=== PATIENT | male | born 1940 | race Caucasian/White ===

== ENCOUNTER 2016-09-21 09:50 | Emergency (ER) | payer OTHER, MEDICARE ==
[~2016-09-21] VITALS: Ht 182.9 cm; Wt 74.8 kg
[~2016-09-21 09:50] MED LIST: ALLOPURINOL300 MG PO; AMOXIL500 MG PO; DESYREL50 MG PO; FOLIC ACID 1 MG PO; METHOTREXATE 22.5 MG PO; METHOTREXATE2.5 M1 PO; METOPROLOL TART50 MG PO; NORCO 325 MG-7.1 TAB PO; PROTONIX 40MG T40 MG PO; RESTASIS 0.4 M0.4 ML OPH; SIMVASTATIN20 MG PO; TOBREX OPH OPH; TRAZODONE50 MG PO; WARFARIN SODIUM5 MG PO; ZOLPIDEM TARTRA10 MG PO
--- NOTE | 2016-09-21 10:38 | ED NOSE COMPLAINT ---
History of Present Illness General Chief Complaint: Epistaxis/Nasal Foreign Body Stated Complaint: NOSE BLEED Source: patient, old records Exam Limitations: no limitations Vital Signs & Intake/Output Vital Signs & Intake/Output Vital Signs Date Time Temp Pulse Resp B/P Pulse O2 O2 Flow FiO2 Ox Delivery Rate 09/21 1206 98.6 76 18 156/84 98 Room Air 09/21 1002 97.0 100 16 170/83 98 Room Air ED Intake and Output 09/22 0000 09/21 1200 Intake Total Output Total Balance Patient 165 lb Weight Allergies Coded Allergies: NO KNOWN ALLERGIES (09/23/13) Reconcile Medications Allopurinol 300 MG TAB 1 TAB PO DAILY GOUT (Reported) Cyclosporine (Restasis 0.4 Ml) 0.4 ML EMU 1 GTT OPH BID EYE (Reported) Folic Acid 1 MG TABLET 1 MG PO DAILY FOLIC ACID SUPPLEMENT (Reported) Methotrexate 2.5 MG TAB 5 TAB PO QW UNKNOWN (Reported) Metoprolol Tartrate 50 MG TABLET 1.5 TAB PO BID HEART/BP (Reported) Pantoprazole Sodium (Protonix) 40 MG TAB 40 MG PO DAILY GERD (Reported) Simvastatin (Zocor) 20 MG TAB 1 TAB PO QPM CHOLESTEROL (Reported) Trazodone Hydrochloride (Desyrel) 50 MG TAB 0.5 TAB PO AT BEDTIME sleep Warfarin Sodium 5 MG TABLET 0.5-1 TAB PO AD BLOOD THINNER (Reported) Zolpidem Tartrate 10 MG TAB 0.5 TAB PO QPM SLEEP (Reported) Triage Note: PT STATES HE BEGAN HAVING A NOSE BLEED ABOUT 0900 AND HAS NOT BEEN ABLE TO GET IT TO STOP. PT STATES THIS HAPPEND ABOUT 1 YEAR AGO TO HIM. PT IS TAKING COUMADIN. Triage Nurses Notes Reviewed? yes Onset: Abrupt Duration: hour(s): (2), constant Timing: recent history Injury Environment: home Severity: moderate Severity Numbers: 7 No Modifying Factors: none Associated Symptoms: denies HPI: 76-year-old male with history of aortic valve replacement on Coumadin presents emergency room complaining of a right-sided epistaxis for the past 2 hours that came on suddenly that he is been unable to stop by applying pressure. The patient states he's had history of similar nosebleeds in the past that required packing. There's been no recent fall trauma or other injury. He denies any dizziness lightheadedness. The patient states he had his INR checked last week and it was 3.9. He is otherwise without any other complaints currently. (JAMES JOSHI) Past History Travel History Traveled to [place] past 21 day No Medical History Any Pertinent Medical History? 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 No (JAMES JOSHI) Review of Systems Review of Systems Constitutional: Reports: see HPI. All Other Systems: Reviewed and Negative Comments Review of systems: See HPI, All other systems negative. Constitutional, no chills no fever, no malaise HEENT: no sore throat no congestion Cardiovascular: No chest pain , no palpitation Skin, no jaundice no rashes, no change in skin Respiratory: No dyspnea no cough GI: No nausea no vomiting, no diarrhea, no bloating/constipation : No dysuria Muscle skeletal: No joint pain, no joint swelling, no back pain, no neck pain, Neurologic: No numbness , no headache Psych: No stress Heme/endocrine: No bruising bleeding Immunology: No lymphadenopathy, (JAMES JOSHI) Physical Exam Physical Exam General Appearance: well developed/nourished, no apparent distress, alert, awake Nose: active bleeding (R NOSTRIL) Comments: Well-developed well-nourished patient in no apparent distress. Head/Face: Atraumatic, no maxillary/frontal sinus tenderness, no facial swelling Eyes: PERRL, EOMI, no conjunctival injection Ear:External auditory canals clear, Nose: Right-sided active nostril bleeding, left nostril is clear no septal hematoma Throat: Moist mucous membranes.Pharynx normal. No pharyngeal erythema/exudate seen. No stridor/drooling or assymetry. No swelling or edema. Neck: Supple, no lymphadenopathy, FROM Back: FROM, Nontender Cardiovascular: Regular rate and rhythms no murmur Respiratory: No respiratory distress. Patient speaking in full complete sentences. Breath sounds clear to auscultation bilaterally: NO W/R/R Extremities: full range of motion Neuro: Alert and oriented x3 Skin: Warm & dry;No appreciable rash on exposed skin Psych: Mood affect normal, normal memory normal judgment. (JAMES JOSHI) Progress Differential Diagnoses I considered the following diagnoses in my evaluation of the patient: Epistaxis, elevated inr Plan of Care: Orders Procedure Date/time Status PARTIAL THROMBOPLASTIN TIME 09/21 1041 Complete PROTHROMBIN TIME 09/21 1041 Complete Laboratory Tests 09/21/16 1115: PT 68.8 *H, INR 6.68 *H, APTT 54 H Labs were sent, Rhino Rocket 7.5CM anterior posterior was placed by myself patient tolerated procedure well we'll continue to monitor case was discussed with Dr. Lee. On repeat evaluation patient is resting comfortably there is been no further residual bleeding the patient is requesting the Rhino Rocket BE removed at this time. The Rhino Rocket was removed by myself and the patient was monitored for a period of time without any residual bleeding. Case was discussed with Dr. Lee who evaluated the patient , i discussed with him at length his elevated INR 6.6 . The patient will hold his Coumadin this evening and tomorrow. Per Dr. lee patient will be treated with vitamin K 5 mg by mouth. The information was provided for close follow-up with his primary care physician on Friday, as well as ENT. I advised return anytime sooner if he redevelops bleeding or has any other concerns he feels comfortable this plan cleared for discharge (JAMES JOSHI) Initial ED EKG: none (JAMES JOSHI) Departure Departure Time of Disposition: 1200 Disposition: HOME OR SELF CARE Condition: Stable Clinical Impression Primary Impression: Epistaxis Secondary Impressions: Elevated INR Referrals: STEPAN CHACON,JEAN Mark (PCP/Family) GINA GUTIERREZ MD Additional Instructions: follow up with your pmd as well as ear nose and throat physician dr gutierrez on [address]. hold your coumadin this evening and tomorrow. begin again on friday. return to the ER at anytime sooner with any concerns. Departure Forms: Customer Survey General Discharge Information (WENCESLAO BENÍTEZ,) PA/JACKET PREPARER Co-Sign Statement Statement: ED Attending supervision documentation- [x] I saw and evaluated the patient. I have also reviewed all the pertinent lab results and diagnostic results. I agree with the findings and the plan of care as documented in the PA's/JACKET PREPARER's documentation. [] I have reviewed the ED Record and agree with the PA's/JACKET PREPARER's documentation. [] Additions or exceptions (if any) to the PAs/JACKET PREPARER's note and plan are summarized below: [] (JHOAN CHACON,YAJAIRA Lakhani)
[2016-09-21 11:36] LABS: PTT 54 SEC (25-37)
[2016-09-21 11:46] LABS: PT 68.8 SEC (9.4-12.5)
[2016-09-21 12:06] VITALS: BP 156/84
== END 2016-09-21 12:06 ==
LOC: ERH 09:50
PROVIDERS: Physician Assistant Medical
DX: R04.0 Epistaxis (principal); R79.1 Abnormal coagulation profile

== ENCOUNTER 2017-08-02 22:00 | Emergency (ER) | payer OTHER, MEDICARE ==
[~2017-08-02 22:00] MED LIST changes: +ACYCLOVIR200 M1 PO; +ALLOPURINOL300 M1 PO; +ATORVASTATIN CA40 M1 PO; +BICALUTAMIDE50 M1 PO; +CLOPIDOGREL75 M1 PO; +FOLIC ACID1 M1 PO; +HYDROCODON-ACE1 EAC3 PO; +KETOCONAZOLE15 GM TOP; +LUPRON DEPOT22.5 M1 INJ; +METHOTREXATE2.5 M2 PO; +PANTOPRAZOLE SO40 M1 PO; +TRAZODONE HCL50 M1 PO; +WARFARIN SODIUM5 M1 PO; +ZOLPIDEM TARTRA10 M1 PO
--- NOTE | 2017-08-02 23:03 | ED NOSE COMPLAINT ---
History of Present Illness General Chief Complaint: General Adult Stated Complaint: BLOODY NOSE Source: patient Exam Limitations: no limitations Vital Signs & Intake/Output Vital Signs & Intake/Output Vital Signs Date Time Temp Pulse Resp B/P B/P Pulse O2 O2 Flow FiO2 Mean Ox Delivery Rate 08/03 0009 67 20 149/73 97 Room Air 08/027 Room Air 08/02 2206 97.5 94 22 152/82 97 Allergies Coded Allergies: NO KNOWN ALLERGIES (09/23/13) Reconcile Medications Acyclovir 200 MG CAPSULE 1 CAP PO BID ANTIVIRAL (Reported) Allopurinol 300 MG TABLET 1 TAB PO DAILY GOUT (Reported) Amoxicillin 875 MG TABLET 1 TAB PO BID NASAL PACKING PPX Atorvastatin Calcium 40 MG TABLET 1 TAB PO DAILY CHOLESTEROL (Reported) Bicalutamide 50 MG TABLET 1 TAB PO DAILY PROSTATE CANCER (Reported) Clopidogrel Bisulfate (Clopidogrel) 75 MG TABLET 1 TAB PO DAILY BLOOD THINNER (Reported) Folic Acid 1 MG TABLET 1 TAB PO DAILY SUPPLEMENT (Reported) Hydrocodone/Acetaminophen (Hydrocodon-Acetaminoph 7.5-325) 7.5 MG-325 MG TABLET 0.5 TAB PO DAILY PAIN (Reported) Ketoconazole 2 % CREAM..G. 1 RAFITA TOP BID FACE (Reported) apply to affected area(s) Leuprolide Acetate (Lupron Depot) (Unknown Strength) SYRINGEKIT (Unknown Dose) INJ Q3M PROSTATE CANCER (Reported) Methotrexate 2.5 MG TABLET 2 TAB PO DAILY PSORIASIS (Reported) Pantoprazole Sodium 40 MG TABLET.DR 1 TAB PO DAILY GI (Reported) Trazodone HCl 50 MG TABLET 1-2 TAB PO QPM SLEEP (Reported) Warfarin Sodium 5 MG TABLET 0.5-1 TAB PO AD BLOOD THINNER (Reported) Zolpidem Tartrate 10 MG TABLET 1 TAB PO QPM SLEEP (Reported) Triage Note: PER PT HAD NOSE CAUTERIZED THIS AM NOW BLEEDING AGAIN X 45 MINUTES. ON COUMADIN. NO DIFF SWALLOWING Triage Nurses Notes Reviewed? yes Onset: Abrupt Duration: day(s): (1), changing over time, continues in ED, getting worse Timing: remote history Injury Environment: home Severity: moderate, severe Severity Numbers: 6 No Modifying Factors: none HPI: 77-year-old male past medical history of hypertension, coronary artery disease, valve replacement on Coumadin presents for evaluation of a nosebleed. Patient states that he first noticedbleeding earlier today. He went to an urgent care and had his nose cauterized. He was doing well until several hours later when he started bleeding again. He continued to HOLD pressure however this did not work. He states that he has had multiple nosebleeds over the past several years has been on Coumadin. He denies any chest pain shortness of breath dizziness lightheadedness difficulty swallowing. The blood is only coming from the left naris nothing from the right. He states that he checks his INR every couple weeks and usually it is normal. He also takes Plavix for coronary artery disease. (Joo Edwards) Past History Travel History Traveled to [place] past 21 day No Medical History Any Pertinent Medical History? 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 No (Joo Edwards) Review of Systems Review of Systems Constitutional: Reports: no symptoms. EENTM: Reports: epistaxis. Respiratory: Reports: no symptoms. Cardiovascular: Reports: no symptoms. GI: Reports: no symptoms. Genitourinary: Reports: no symptoms. Musculoskeletal: Reports: no symptoms. Skin: Reports: no symptoms. Neurological/Psychological: Reports: no symptoms. Hematologic/Endocrine: Reports: no symptoms. Immunologic/Allergic: Reports: no symptoms. All Other Systems: Reviewed and Negative (Joo Edwards) Physical Exam Physical Exam General Appearance: well developed/nourished, no apparent distress, alert, awake Head: atraumatic, normal appearance Eyes: Bilateral: normal appearance, PERRL, EOMI. Nose: active bleeding, dried blood, THERE IS ACTIVE BLEEDING FROM THE LEFT NARIS. tHERE IS CAUTERIZED TISSUE IN THE NASAL PASSAGES ON THE LEFT NARIS. a BLEEDING ARTERY CANNOT BE LOCALIZED Mouth/Throat: normal mouth inspection, BLOOD IN THE POSTERIOR PHARYNX Neck: normal inspection, supple, full range of motion Cardiovascular/Respiratory: normal breath sounds, normal peripheral pulses, regular rate/rhythm, no respiratory distress Back: normal inspection, normal range of motion, no vertebral tenderness Neurologic/Psych: no motor/sensory deficits, awake, alert, oriented x 3 (Tristen BENÍTEZ,Joo) Progress Differential Diagnoses I considered the following diagnoses in my evaluation of the patient: [Anterior nosebleed, posterior nosebleed, nasal fracture, coagulopathy, hypovolemia] Plan of Care: Orders Procedure Date/time Status PARTIAL THROMBOPLASTIN TIME 08/02 2228 Complete PROTHROMBIN TIME 08/02 2228 Complete COMPREHENSIVE METABOLIC PANEL 08/02 2228 Complete CBC WITHOUT DIFFERENTIAL 08/02 2228 Complete Laboratory Tests 08/02/17 2305: Anion Gap 12, Estimated GFR > 60, BUN/Creatinine Ratio 31.1 H, Glucose 115 H, Calcium 9.0, Total Bilirubin 0.5, AST 65 H, ALT 30, Alkaline Phosphatase 260 H , Total Protein 6.0 L, Albumin 3.6, Globulin 2.4, Albumin/Globulin Ratio 1.5, PT 71.8 *H, INR 6.97 *H, APTT 54 H, CBC w Diff NO MAN DIFF REQ, RBC 3.92 L, MCV 89.3, MCH 29.0, MCHC 32.5 L, RDW 18.4 H, MPV 6.8 L, Gran % 79.9 H, Lymphocytes % 10.8 L, Monocytes % 8.1, Eosinophils % 0.7, Basophils % 0.5, Absolute Granulocytes 7.3 H, Absolute Lymphocytes 1.0 L, Absolute Monocytes 0.7 H, Absolute Eosinophils 0.1, Absolute Basophils 0 Patient seen and evaluated. He has active bleeding from the left naris. There is evidence of previous cauterization. No bleeding vessel is visualized. Patient also has blood noted in the posterior oropharynx. A thrombin coated Rhino Rocket was placed. Patient tolerated well. He was observed for an hour and a half for evidence of rebleeding. He was ambulated in the emergency department had a steady gait. No dizziness or lightheadedness. Patient's INR is elevated to 7. He denies any history of hematuria melena bleeding from his rectum or any other evidence of bleeding other than the epistaxis. Patient will be given a dose of 2.5 mg of vitamin K. He was instructed to hold Coumadin today Friday and Friday and then recheck a level on Friday. Advised him to return to the emergency department immediately with any rebleeding chest pain shortness of breath dizziness lightheadedness or any other concerns. Patient will be covered with amoxicillin. Advised him to return the emergency Department or ear nose and throat doctor in 2 or 3 days for removal. Case discussed with Dr. Aquino she agrees. Patient appears clinically well agrees the plan Initial ED EKG: none (Joo Edwards) Departure Departure Disposition: HOME OR SELF CARE Condition: Stable Clinical Impression Primary Impression: Epistaxis Secondary Impressions: Elevated INR Referrals: Thuan CHACON,Archie Mark (PCP/Family) Additional Instructions: Rest, avoid excessive physical activity. Do not take your Coumadin tomorrow and do not take it on Friday. Get your INR checked on Friday. Take antibiotics as directed for the full course. The Rhino Rocket need to stay in for at least 2-3 days. Return to the emergency department or ear nose and throat doctor for removal. If you have rebleeding severe pain fever or any other concerns return immediately. Departure Forms: Customer Survey General Discharge Information Prescriptions: Current Visit Scripts Amoxicillin 1 TAB PO BID #14 TAB (Joo Edwards) PA/TOOL PROCUREMENT COORDINATOR Co-Sign Statement Statement: ED Attending supervision documentation- [X] I saw and evaluated the patient. I have also reviewed all the pertinent lab results and diagnostic results. I agree with the findings and the plan of care as documented in the PA's/TOOL PROCUREMENT COORDINATOR's documentation. [X] I have reviewed the ED Record and agree with the PA's/TOOL PROCUREMENT COORDINATOR's documentation. [] Additions or exceptions (if any) to the PAs/TOOL PROCUREMENT COORDINATOR's note and plan are summarized below: [] (Kenia CHACON,Oralia) Procedures Epistaxis/Nasal Foreign Body Status: bleeding Clots Cleared Nasal Passage: by patient blowing Nasal Drops Instilled: Left: Afphrin. Ext Pressure/Nose Pinch (min): 20 Inspected With: otoscope, headlight Bleeding Site: Left posterior naris Observe for Bleedin minutes Nasal Rocket: Left: Inserted Anterior, Inserted Posterior. Progress: Thrombin coated Rhino Rocket placed left naris good hemostasis achieved (Tristen BENÍTEZ,Joo)
[2017-08-02 23:15] LABS: ABSOLUTE BASOPHIL COUNT 0 /CUMM (0.0-0.2); ABSOLUTE EOSINOPHIL COUNT 0.1 /CUMM (0.0-0.7); ABSOLUTE GRANULOCYTE CT 7.3 /CUMM (1.4-6.5); ABSOLUTE MONOCYTE COUNT 0.7 /CUMM (0.10-0.60); BASOPHIL % 0.5 % (0.0-2.0); EOSINOPHIL % 0.7 % (0-5); GRANULOCYTE % 79.9 % (42.2-75.2); MEAN CORPUSCULAR HGB CONC 32.5 G/DL (33.0-37.0); MEAN CORPUSCULAR VOLUME 89.3 FL (80.0-94.0); MEAN PLATELET VOLUME 6.8 FL (7.4-10.4); PLATELET COUNT 205 /CUMM (130-400); RBC DISTRIBUTION WIDTH 18.4 % (11.5-14.5); RED BLOOD CELL CT 3.92 /CUMM (4.70-6.10); WHITE BLOOD CELL COUNT 9.2 /CUMM (4.8-10.8)
[2017-08-02 23:24] LABS: PTT 54 SEC (25-37)
[2017-08-02 23:37] LABS: PT 71.8 SEC (9.4-12.5)
[2017-08-03 00:09] VITALS: BP 149/73
[2017-08-03] MEDS ORDERED: AMOXICILLIN875 M1 PO (00:25)
== END 2017-08-03 00:39 ==
LOC: ERH 22:00
PROVIDERS: Physician Assistant Medical
DX: R04.0 Epistaxis (principal); R79.1 Abnormal coagulation profile

== ENCOUNTER 2017-08-05 11:49 | Emergency (ER) | payer OTHER, MEDICARE ==
[~2017-08-05] VITALS: Ht 182.9 cm; Wt 74.8 kg
[~2017-08-05 11:49] MED LIST changes: +AMOXICILLIN875 M1 PO
--- NOTE | 2017-08-05 12:13 | ED NOSE COMPLAINT ---
History of Present Illness General Chief Complaint: General Adult Stated Complaint: RHINO ROCKET REMOVAL Source: patient, old records Exam Limitations: no limitations Vital Signs & Intake/Output Vital Signs & Intake/Output Vital Signs Date Time Temp Pulse Resp B/P B/P Pulse O2 O2 Flow FiO2 Mean Ox Delivery Rate 08/05 1318 96.9 104 18 118/74 99 Room Air 08/05 1202 97.0 120 20 134/84 98 Room Air Allergies Coded Allergies: NO KNOWN ALLERGIES (09/23/13) Reconcile Medications Acyclovir 200 MG CAPSULE 1 CAP PO BID ANTIVIRAL (Reported) Allopurinol 300 MG TABLET 1 TAB PO DAILY GOUT (Reported) Amoxicillin 875 MG TABLET 1 TAB PO BID NASAL PACKING PPX Atorvastatin Calcium 40 MG TABLET 1 TAB PO DAILY CHOLESTEROL (Reported) Bicalutamide 50 MG TABLET 1 TAB PO DAILY PROSTATE CANCER (Reported) Clopidogrel Bisulfate (Clopidogrel) 75 MG TABLET 1 TAB PO DAILY BLOOD THINNER (Reported) Folic Acid 1 MG TABLET 1 TAB PO DAILY SUPPLEMENT (Reported) Hydrocodone/Acetaminophen (Hydrocodon-Acetaminoph 7.5-325) 7.5 MG-325 MG TABLET 0.5 TAB PO DAILY PAIN (Reported) Ketoconazole 2 % CREAM..G. 1 RAFITA TOP BID FACE (Reported) apply to affected area(s) Leuprolide Acetate (Lupron Depot) (Unknown Strength) SYRINGEKIT (Unknown Dose) INJ Q3M PROSTATE CANCER (Reported) Methotrexate 2.5 MG TABLET 2 TAB PO DAILY PSORIASIS (Reported) Pantoprazole Sodium 40 MG TABLET.DR 1 TAB PO DAILY GI (Reported) Trazodone HCl 50 MG TABLET 1-2 TAB PO QPM SLEEP (Reported) Warfarin Sodium 5 MG TABLET 0.5-1 TAB PO AD BLOOD THINNER (Reported) Zolpidem Tartrate 10 MG TABLET 1 TAB PO QPM SLEEP (Reported) Triage Note: PT TO ED FOR REMOVAL OF RHINO ROCKET, PLACED ON 08/02. DENIES PAIN. Triage Nurses Notes Reviewed? yes Onset: Abrupt Duration: day(s): (3), better, continues in ED Timing: single episode today Injury Environment: home Severity: mild, moderate No Modifying Factors: none HPI: 77-year-old male past medical history of VALVE replacement on Coumadin, hypertension, coronary artery disease presents for Rhino Rocket removal. he was seen here 3 days ago for a bleed of his left naris. A thrombin coated Rhino Rocket was placed with good hemostasis. Patient was started on amoxicillin which she has been taking. He states that there is been no rebleeding and he denies any pain or fever. At the time he was first seen and had a INR of 7. No chest pain shortness of breath. He held his Coumadin had an INR rechecked yesterday and was told to take 2.5 today. (Joo Ewdards) Past History Travel History Traveled to [place] past 21 day No Medical History Any Pertinent Medical History? 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 No (Joo Edwards) Review of Systems Review of Systems Constitutional: Reports: no symptoms. EENTM: Reports: epistaxis. Respiratory: Reports: no symptoms. Cardiovascular: Reports: no symptoms. GI: Reports: no symptoms. Genitourinary: Reports: no symptoms. Musculoskeletal: Reports: no symptoms. Skin: Reports: no symptoms. Neurological/Psychological: Reports: no symptoms. Hematologic/Endocrine: Reports: no symptoms. Immunologic/Allergic: Reports: no symptoms. All Other Systems: Reviewed and Negative (Joo Edwards) Physical Exam Physical Exam General Appearance: well developed/nourished, no apparent distress, alert, awake , comfortable Head: atraumatic, normal appearance Eyes: Bilateral: normal appearance, PERRL, EOMI. Nose: dried blood, A DRIED rHINO rOCKET IS PRESENT IN THE LEFT NARIS. tHERE IS DRIED BLOOD PRESENT. nO ACTIVE BLEEDING OR TENDERNESS PALPATION NO OVERLYING ERYTHEMA Mouth/Throat: normal mouth inspection, pharynx normal, NO BLOOD IN THE POSTERIOR OROPHARYNX Neck: normal inspection, supple, full range of motion Cardiovascular/Respiratory: normal breath sounds, normal peripheral pulses, regular rate/rhythm, no respiratory distress Back: normal inspection, normal range of motion Neurologic/Psych: no motor/sensory deficits, awake, alert, oriented x 3, normal gait Skin: intact, normal color, warm/dry (Black PA,Joo) Progress Differential Diagnoses I considered the following diagnoses in my evaluation of the patient: [Anterior/ posterior Epistaxis, coagulopathy] Plan of Care: Orders Procedure Date/time Status PARTIAL THROMBOPLASTIN TIME 08/05 1207 Complete PROTHROMBIN TIME 08/05 1207 Complete Laboratory Tests 08/05/17 1214: PT 14.3 H, INR 1.37 H, APTT 30 PT seen and evaluated. He denies any episodes of rebleeding since the Rhino Rocket was placed 3 days ago. He has not yet seen an ear nose and throat doctor. He did see his manufacturing quality technician to rechecked his INR yesterday and told him to restart Coumadin 2.5 mg today. She denies any chest pain shortness of breath dizziness or lightheadedness. The Rhino Rocket was deflated and removed without difficulty. Patient was observed for any rebleeding. A small amount of blood was noted to be present after removal however no bleeding vessel was seen. Silver nitrate was placed into the anterior naris and patient held pressure for approximately 45 minutes. There was no rebleeding here in the emergency department. Patient's INR was checked here and is 1.37 which is subtherapeutic for him. He was instructed to restart Coumadin 2.5 mg today. Patient was advised that this could lead to significant rebleeding and it was recommended that he have a new Rhino Rocket placed to prevent this. Patient does not want another Rhino Rocket he says that he will return to the emergency department or ear nose and throat with any rebleeding. Advised patient to continue to rest and avoid excessive physical activity. Follow-up with ENT as soon as possible. PTS heart rate was 120 upon arrival to the emergency department. It is 92 WHEN recheck now currently. Patient is feeling well and denies any concerns. He'll be discharged with instructions to follow-up with ENT continue Coumadin as directed. Discussed return precautions in detail. Patient appears clinically well and agrees the plan. Case discussed with Dr. Carmichael and he agrees. Initial ED EKG: none (Joo Edwards) Departure Departure Disposition: HOME OR SELF CARE Condition: Stable Clinical Impression Primary Impression: Epistaxis Referrals: Tyshawn CHACON,Rogers Larose MD,Archie Mark (PCP/Family) Additional Instructions: Continue to take her Coumadin as directed by YOUr manufacturing quality technician. Rest and drink plenty of fluids. Avoid excessive physical activity. Make a follow-up with aN ear nose and throat doctor as soon as possible. Monitor symptoms return immediately with rebleeding, chest pain, shortness of breath, dizziness or any other concerns. Departure Forms: Customer Survey General Discharge Information (Joo Edwards) PA/CAMPUS ADMINISTRATIVE ASSISTANT Co-Sign Statement Statement: ED Attending supervision documentation- X I saw and evaluated the patient. I have also reviewed all the pertinent lab results and diagnostic results. I agree with the findings and the plan of care as documented in the PA's/CAMPUS ADMINISTRATIVE ASSISTANT's documentation. [] I have reviewed the ED Record and agree with the PA's/CAMPUS ADMINISTRATIVE ASSISTANT's documentation. [] Additions or exceptions (if any) to the PAs/CAMPUS ADMINISTRATIVE ASSISTANT's note and plan are summarized below: [] (Rosalie CHACON,Jose)
[2017-08-05 12:34] LABS: PT 14.3 SEC (9.4-12.5); PTT 30 SEC (25-37)
[2017-08-05 13:18] VITALS: BP 118/74
== END 2017-08-05 13:23 ==
LOC: ERH 11:49
PROVIDERS: Physician Assistant Medical
DX: R04.0 Epistaxis (principal)